=== PATIENT | male | born 1980 | race American Indian/Alaskan Native ===

== ENCOUNTER 2018-04-17 18:59 | Emergency (ER) | payer SELFPAY ==
[2018-04-17 19:11] VITALS: BP 146/99
[2018-04-17] MEDS ORDERED: BOOSTRIX IM ONE (20:18)
[2018-04-17] MEDS ORDERED: NORCO 10/325 PO ONE (20:18)
[2018-04-17] MEDS ORDERED: SILVER NITRATE TP ONE (20:19)
[2018-04-17] MEDS: SILVER NITRATE TP ONE ×2 (20:25→23:14)
--- NOTE | 2018-04-17 21:16 | XRay Report ---
FINAL REPORT PROCEDURE: XR FOREARM RT TECHNIQUE: Right forearm, two views HISTORY: multiple lacerations to rg arm/rt arm injury COMPARISON: No prior studies are available for comparison. FINDINGS: No acute fracture or dislocation. There is soft tissue irregularity, compatible with lacerations. There are several rounded subcentimeter densities overlying the soft tissues, possibly related to bandage material for soft tissue irregularities. IMPRESSION: No acute fracture
--- NOTE | 2018-04-17 22:30 | Emergency Department Report ---
ED Laceration HPI - HPI Chief Complaint: Extremity Injury, Upper Stated Complaint: DEEP LACERATION ON ARM Time Seen by Provider: 04/17/18 19:26 Occurred When: Today Location: Upper Extremity Severity: moderate Tetanus Status: Not up to Date Laceration Symptoms: Yes Pain, No Foreign Body Sensation, No Numbness, No Weakness Other History: This is a 37-year-old male nontoxic, well nourished in appearance , no acute signs of distress presents to the ED with c/o of right forearm laceration that occurred this afternoon. Patient stated he was moving furniture with his landlord which the glass at the furniture broke and caused a laceration. Patient denies being up-to-date with tetanus. Patient denies any chest pain, shortness of breath, fever, chills, nausea, vomiting, headache or stiff neck. Patient denies any allergies or significant past medical history. ED Review of Systems ROS: Stated complaint: DEEP LACERATION ON ARM Other details as noted in HPI Constitutional: denies: chills, fever Eyes: denies: eye pain, eye discharge, vision change ENT: denies: ear pain, throat pain Respiratory: denies: cough, shortness of breath, wheezing Cardiovascular: denies: chest pain, palpitations Endocrine: no symptoms reported Gastrointestinal: denies: abdominal pain, nausea, diarrhea Genitourinary: denies: urgency, dysuria Musculoskeletal: denies: back pain, joint swelling, arthralgia Skin: denies: rash, lesions Neurological: denies: headache, weakness, paresthesias Psychiatric: denies: anxiety, depression Hematological/Lymphatic: denies: easy bleeding, easy bruising ED Past Medical Hx - Past Medical History Previous Medical History?: No - Surgical History Past Surgical History?: No - Social History Smoking Status: Current Every Day Smoker Substance Use Type: Alcohol, Marijuana - Medications Home Medications: Home Medications Medication Instructions Recorded Confirmed Last Taken Type Acetaminophen/Codeine [Tylenol 1 tab PO Q6H PRN #12 tab 04/17/18 Unknown Rx /Codeine # 3 tab] Ibuprofen [Motrin] 600 mg PO Q8H PRN #30 tablet 04/17/18 Unknown Rx Sulfamethoxazole/Trimethoprim 1 each PO BID #14 tablet 04/17/18 Unknown Rx [Bactrim DS TAB] Laceration Physical Exam - Exam General: Vital signs noted. No distress. Alert and acting appropriately. GENERAL: The patient is a well-developed, well-nourished in no apparent distress. Patient is alert and acting appropriately for age. Alert and oriented 3, no apparent distress, normal gait, atraumatic. HEENT: Head is normocephalic and atraumatic. PERRL, Extraocular muscles are intact. Pupils are equal, round, and reactive to light and accommodation. Nares appeared normal. Mouth is well hydrated and without lesions. Mucous membranes are moist. Posterior pharynx clear of any exudate or lesions. Mouth is well hydrated and without lesions. Tonsils not erythematous or swollen. Uvula midline. Tongue elevated. Mucous members are moist. Posterior pharynx clear, no exudate or lesions. Patent airways. NECK: Supple. No carotid bruits. No lymphadenopathy or thyromegaly.nontender. No meningitic signs are noted. LUNGS: Clear to auscultation. Non labor breathing. No intercostal retractions. Symmetrical with respiration, no wheezing, no rales, or crackles. HEART: Regular rate and rhythm without murmur, rubs or gallops. No reproducible. S1, S2 present, regular rate and rhythm without murmur, no rubs, no gallops. ABDOMEN: Soft, nontender, and nondistended. Positive bowel sounds. No hepatosplenomegaly was noted. No guarding or rebound tenderness, negative epigastric bruit. Negative psoas sign, negative cordon sign, negative McBurneys sign EXTREMITIES: Without any cyanosis, clubbing, rash, lesions or edema. Peripheral pulses intact. Capillary refill less than 2 seconds. Full range of motion bilaterally. NEUROLOGIC: Cranial nerves II through XII are grossly intact. Alert and oriented x 3. Normal gait. Symmetrical strength and sensation. Reflexes 2+ throughout. Cerebellar testing normal. GCS score of 15. PSYCHIATRIC: Normal affect with no suicidal or homicidal ideations. Wound Length (cm): 4 Full Body Front + Back: 1 - 4 cm flap lac present with small artery present and bleeding 2 - 2 cm lac flap with no artery involvement Laceration Exam: Yes Normal Distal CMS, No Foreign Body, No Exposed Tendon, Vessel, or Nerve, No Tendon Injury ED Course Vital Signs 04/17/18 19:08 Temperature 98.7 F Pulse Rate 103 H Respiratory 18 Rate Blood Pressure 146/99 O2 Sat by Pulse 97 Oximetry - Reevaluation(s) Reevaluation #1: 04/17/18 22:28 Patient is speaking in full sentences with no signs of distress noted. - Laceration /Wound Repair Right Arm Wound Location: upper extremity Wound's Depth, Shape: flap Irrigated w/ Saline (ccs): 500 Betadine Prep?: Yes Anesthesia: Lidocaine w/ Epi (1 lidocaine with epi 1:200,000) Volume Anesthetic (ccs): 12 Wound Debrided: minimal Wound Repaired With: sutures Suture Size/Type: 5:0, nylon Number of Sutures: 26 Layer Closure?: Yes Deep Layer Suture Size/Type: 4:0 (Vicryl) Number Deep Layer Sutures: 8 Sterile Dressing Applied?: Yes Progress: Prior to procedure, area has been cleaned with soap and water. Under sterile field, I used Betadine to clean the area. I then used 40 mL of normal saline to flush the area. I then used 1% lidocaine with epi 1-200,000 and injected 12 mL to the wounds. I first used a 4-0 Vicryl to suture the artery with figure 8. Bleeding stopped. I then used a 4-0 Vicryl used for deeper dermis to proximate the flap with total of 4 on distal flap and 4 on proximal flap. I then used a 5-0 nylon and placed total of 15 sutures to proximal lac and total of 11 sutures to the distal lac. I then applied a sterile 4 x 4 with tape. Minimal bleeding noted but is under control. Patient tolerated procedure well with no signs of distress. ED Medical Decision Making - Medical Decision Making This is a 37-year-old male that presents with laceration. Patient is stable and was examined by me. The laceration suturing has been performed and has been performed and patient tolerated well. A sterile dressing has been applied. Patient was educated on proper wound care. Patient is discharged with Bactrim and Tylneol with codein and was instructed not to operate any machinery while taking Tylenol with codeine due to drowsiness. Patient was instructed to return in 10 days for suture removal. Patients mother is currently at the bedside and stated she will drive the patient home after discharge due to possible drowsiness of [place]. Patient also received tetanus in the ED. Patient was instructed to refer to Follow-up with a primary care doctor in 3-5 days or if symptoms worsen and continue return to emergency room as soon as possible. At time of discharge, the patient does not seem toxic or ill in appearance. No acute signs of distress noted. Patient agrees to discharge treatment plan of care. No further questions noted by the patient. Critical care attestation.: If time is entered above; I have spent that time in minutes in the direct care of this critically ill patient, excluding procedure time. ED Disposition Clinical Impression: Laceration Disposition: DC-01 TO HOME OR SELFCARE Is pt being admited?: No Does the pt Need Aspirin: No Condition: Stable Instructions: Suture Care (ED), Laceration (ED), Sulfamethoxazole/Trimethoprim (By mouth), Acetaminophen/Codeine (By mouth) Additional Instructions: Follow-up with a primary care doctor in 3-5 days or if symptoms worsen and continue return to emergency room as soon as possible. Return in 10 days for suture removal. Prescriptions: Acetaminophen/Codeine [Tylenol /Codeine # 3 tab] 1 tab PO Q6H PRN #12 tab PRN Reason: Pain , Severe (7-10) Ibuprofen [Motrin] 600 mg PO Q8H PRN #30 tablet PRN Reason: Pain Sulfamethoxazole/Trimethoprim [Bactrim DS TAB] 1 each PO BID #14 tablet Referrals: PRIMARY CAREMD [Primary Care Provider] - 3-5 Days ALEXANDRA LUNDBERG MD [Staff Physician] - 3-5 Days [facility] [Outside] - 3-5 Days [facility] [Outside] - 3-5 Days Forms: Work/School Release Form(ED)
== END 2018-04-17 22:50 | disposition home or self-care (01) ==
LOC: ED 18:59
DX: S51.811A Laceration without foreign body of right forearm, initial encounter (principal); F17.200 Nicotine dependence, unspecified, uncomplicated; W26.8XXA Contact with other sharp object(s), not elsewhere classified, initial encounter; Y93.89 Activity, other specified; Y92.89 Other specified places as the place of occurrence of the external cause; Y99.8 Other external cause status
CPT/HCPCS: 90471; 90715

== ENCOUNTER 2018-04-29 12:27 | Emergency (ER) | payer OTHER ==
[2018-04-29 12:34] VITALS: BP 179/107
--- NOTE | 2018-04-29 15:09 | Emergency Department Report ---
Suture/Staple Removal - [facility] Chief Complaint: Laceration/Recheck/Suture Stated Complaint: SUTURE REMOVAL Time Seen by Provider: 04/29/18 14:50 When Sutures or Varun Placed: 11-14 Days Ago Wound Location: 37-year-old male presents for suture removal from right forearm ED Review of Systems ROS: Stated complaint: SUTURE REMOVAL Other details as noted in HPI Constitutional: denies: chills, fever Eyes: denies: eye pain, eye discharge, vision change ENT: denies: ear pain, throat pain Respiratory: denies: cough, shortness of breath, wheezing Cardiovascular: denies: chest pain, palpitations Endocrine: no symptoms reported Gastrointestinal: denies: abdominal pain, nausea, diarrhea Genitourinary: denies: urgency, dysuria Musculoskeletal: denies: back pain, joint swelling, arthralgia Skin: denies: rash, lesions Neurological: as per HPI (sutures placed right distal forearm). denies: headache, weakness, paresthesias Psychiatric: denies: anxiety, depression Hematological/Lymphatic: denies: easy bleeding, easy bruising ED Past Medical Hx - Past Medical History Previous Medical History?: No - Surgical History Past Surgical History?: No - Social History Smoking Status: Light Tobacco Smoker Substance Use Type: None - Medications Home Medications: Home Medications Medication Instructions Recorded Confirmed Last Taken Type Acetaminophen/Codeine [Tylenol 1 tab PO Q6H PRN #12 tab 04/17/18 Unknown Rx /Codeine # 3 tab] Ibuprofen [Motrin] 600 mg PO Q8H PRN #30 tablet 04/17/18 Unknown Rx Sulfamethoxazole/Trimethoprim 1 each PO BID #14 tablet 04/17/18 Unknown Rx [Bactrim DS TAB] Suture Removal Exam - Exam General: Vital signs noted. No distress. Alert and acting appropriately. Wound: No Pathologic Erythema, No Tenderness, No Drainage, No Pus, No Wound Dehiscence Other Systems: All other systems reviewed and are unremarkable. ED Course Vital Signs 04/29/18 12:32 Temperature 98.6 F Pulse Rate 94 H Respiratory 18 Rate Blood Pressure 179/107 O2 Sat by Pulse 99 Oximetry ED Recheck MDM - Medical Decision Making A/P: Suture removal 1-41 sutures removed from right distal forearm. One had 26 sutures, second wound had 15 sutures 2-wound appears clean no signs of dehiscence or infection. Range of motion right distal extremity is clinically intact 3-follow-up with primary care Critical care attestation.: If time is entered above; I have spent that time in minutes in the direct care of this critically ill patient, excluding procedure time. ED Disposition Clinical Impression: Visit for suture removal Disposition: DC- TO HOME OR SELFCARE Is pt being admited?: No Does the pt Need Aspirin: No Condition: Stable Instructions: Suture Removal (ED) Referrals: [facility] [Outside] - 3-5 Days Forms: Work/School Release Form(ED) Time of Disposition: 15:09
== END 2018-04-29 15:29 | disposition home or self-care (01) ==
LOC: ED 12:27
DX: S51.811D Laceration without foreign body of right forearm, subsequent encounter (principal); F17.210 Nicotine dependence, cigarettes, uncomplicated; W45.8XXD Other foreign body or object entering through skin, subsequent encounter

== ENCOUNTER 2022-03-16 23:41 | Emergency (ER) | payer SELFPAY ==
[2022-03-17 04:12] VITALS: BP 194/111
--- NOTE | 2022-03-17 05:43 | Emergency Department Report ---
ED General Adult HPI - General Chief complaint: Dizziness Stated complaint: LIGHT HEADED/SEEING STARS Source: patient Mode of arrival: Ambulatory Limitations: No Limitations - History of Present Illness Initial comments: Patient is a 41-year-old -[place] male with no past medical history presents to the ED with complaint of acute onset persistent generalized weakness and fatigue, and elevated blood pressure for the last 12 hours after heavy cigar smoking. Patient states that the symptoms got worsened in the last 8 hours. Patient states that he has been stressed in the last few days and decided to smoke every cigars. Patient denies dizziness, syncope, chest pain, shortness of breath, nausea and vomiting, palpitations, headache, neck pain, diaphoresis, abdominal pain, fever and chills or cough. MD Complaint: Generalized weakness, elevated blood pressure -: hour(s) (12) Severity scale (0 -10): 0 Quality: dull Consistency: intermittent Improves with: none Worsens with: none Associated Symptoms: denies other symptoms, weakness, other (Generalized fatigue). denies: confusion, chest pain, cough, diaphoresis, fever/chills, headaches, loss of appetite, malaise, nausea/vomiting, rash, seizure, shortness of breath, syncope Treatments Prior to Arrival: none - Related Data Previous Rx's Medication Instructions Recorded Last Taken Type Acetaminophen/Codeine [Tylenol 1 tab PO Q6H PRN #12 tab 04/17/18 Unknown Rx /Codeine # 3 tab] Ibuprofen [Motrin] 600 mg PO Q8H PRN #30 tablet 04/17/18 Unknown Rx Sulfamethoxazole/Trimethoprim 1 each PO BID #14 tablet 04/17/18 Unknown Rx [Bactrim DS TAB] amLODIPine 10 mg PO DAILY #30 tab 03/17/22 Unknown Rx Allergies Allergy/AdvReac Type Severity Reaction Status Date / Time No Known Allergies Allergy Unverified 04/17/18 19:08 ED Review of Systems ROS: Stated complaint: LIGHT HEADED/SEEING STARS Other details as noted in HPI Constitutional: malaise, weakness, other (Elevated blood pressure) Eyes: denies: eye pain, eye discharge, vision change ENT: denies: ear pain, throat pain Respiratory: denies: cough, shortness of breath, wheezing Cardiovascular: denies: chest pain, palpitations Endocrine: no symptoms reported Gastrointestinal: denies: abdominal pain, nausea, diarrhea Genitourinary: denies: urgency, dysuria Musculoskeletal: denies: back pain, joint swelling, arthralgia Skin: denies: rash, lesions Neurological: denies: headache, weakness, paresthesias Psychiatric: anxiety. denies: depression, auditory hallucinations, suicidal thoughts Hematological/Lymphatic: denies: easy bleeding, easy bruising ED Past Medical Hx - Past Medical History Previous Medical History?: No - Surgical History Past Surgical History?: Yes Additional Surgical History: R wrist - Social History Smoking Status: Current Every Day Smoker Substance Use Type: Alcohol - Medications Home Medications: Home Medications Medication Instructions Recorded Confirmed Last Taken Type Acetaminophen/Codeine [Tylenol 1 tab PO Q6H PRN #12 tab 04/17/18 Unknown Rx /Codeine # 3 tab] Ibuprofen [Motrin] 600 mg PO Q8H PRN #30 tablet 04/17/18 Unknown Rx Sulfamethoxazole/Trimethoprim 1 each PO BID #14 tablet 04/17/18 Unknown Rx [Bactrim DS TAB] amLODIPine 10 mg PO DAILY #30 tab 03/17/22 Unknown Rx ED Physical Exam - General Limitations: No Limitations General appearance: alert, in no apparent distress, anxious - Head Head exam: Present: atraumatic, normocephalic, normal inspection - Eye Eye exam: Present: normal appearance, PERRL, EOMI Pupils: Present: normal accommodation - ENT ENT exam: Present: normal exam, normal orophraynx, mucous membranes moist, TM's normal bilaterally, normal external ear exam - Neck Neck exam: Present: normal inspection, full ROM. Absent: tenderness - Respiratory Respiratory exam: Present: normal lung sounds bilaterally. Absent: respiratory distress, wheezes, rales, rhonchi, chest wall tenderness, accessory muscle use, decreased breath sounds, prolonged expiratory - Cardiovascular Cardiovascular Exam: Present: normal rhythm, bradycardia, normal heart sounds. Absent: systolic murmur, diastolic murmur, rubs, gallop - GI/Abdominal GI/Abdominal exam: Present: soft, normal bowel sounds. Absent: tenderness, guarding, rebound, hyperactive bowel sounds, hypoactive bowel sounds, mass - Extremities Exam Extremities exam: Present: normal inspection, full ROM, normal capillary refill. Absent: tenderness, pedal edema, joint swelling - Back Exam Back exam: Present: normal inspection, full ROM. Absent: tenderness, CVA tenderness (R), CVA tenderness (L), muscle spasm, paraspinal tenderness, vertebral tenderness - Neurological Exam Neurological exam: Present: alert, oriented X3, CN II-XII intact, normal gait, reflexes normal - Psychiatric Psychiatric exam: Present: normal affect, normal mood, anxious - Skin Skin exam: Present: warm, dry, intact, normal color. Absent: rash ED Course Vital Signs 03/17/22 03/17/22 01:26 04:10 Temperature 98.3 F Pulse Rate 57 L 60 Respiratory 16 18 Rate Blood Pressure 100/60 Blood Pressure 194/111 [Right] O2 Sat by Pulse 100 100 Oximetry ED Medical Decision Making - Medical Decision Making This is a 41-year-old -[place] male with no past medical history presents to the ED with complaint of acute onset persistent generalized weakness and fatigue, and elevated blood pressure for the last 12 hours after heavy cigar smoking. Patient states that the symptoms got worsened in the last 8 hours. Patient states that he has been stressed in the last few days and deci ded to smoke every cigars. In the ED, patient is alert and oriented x3 and is not in any distress but afebrile and hypertensive in triage. Patient has no other symptoms. Patient will discharge home on medications for hypertension and advised to follow-up with his primary care physician in 7 to 10 days for reevaluation return to the ED immediately if symptoms get worse. - Differential Diagnosis Anxiety; uncontrolled hypertension; Critical care attestation.: If time is entered above; I have spent that time in minutes in the direct care of this critically ill patient, excluding procedure time. ED Disposition Clinical Impression: Uncontrolled stage 2 hypertension Disposition: 01 HOME / SELF CARE / HOMELESS Is pt being admited?: No Does the pt Need Aspirin: No Condition: Stable Instructions: Hypertension (ED), Hypertension, Adult, [id number] Additional Instructions: Take medication with food, drink plenty of fluids, follow-up with your primary care physician in 7 to 10 days for reevaluation. Return to the ED immediately if symptoms get worse. Prescriptions: amLODIPine 10 mg PO DAILY #30 tab Referrals: JN SANCHEZ MD [Primary Care Provider] - 3-5 Days Forms: Work/School Release Form(ED) Time of Disposition: 05:34 Print Language: TAMAZIGHT
== END 2022-03-17 06:22 | disposition home or self-care (01) ==
LOC: ED 23:41
DX: I10 Essential (primary) hypertension (principal); F17.200 Nicotine dependence, unspecified, uncomplicated
CPT/HCPCS: 99282